=== PATIENT | male | born 1975 | race Caucasian/White ===

== ENCOUNTER 2016-02-22 08:17 | Emergency (ER) | payer OTHER ==
[2016-02-22 08:36] VITALS: BP 137/88
--- NOTE | 2016-02-22 08:48 | UC ---
Skin Complaint HPI - HPI Summary HPI Summary: Often gets small painful bumps on hips/groin folds where his underwear rubs. Has one right now that has gotten bigger and more painful, worried about it developing into an abscess. Denies drainage or fever. First noticed a few days ago. - History of Current Complaint Chief Complaint: UC Time Seen by Provider: 02/22/16 08:38 Stated Complaint: SKIN COMPLAINT Hx Obtained From: Patient Onset/Duration: Gradual Onset, Lasting Days Timing: Constant Onset Severity: Mild Current Severity: Mild Location: Discrete Character: Pain, Redness, Raised Aggravating: Touch Alleviating: Nothing Associated Signs & Symptoms: Positive: Negative - Allergy/Home Medications Allergies/Adverse Reactions: Allergies Allergy/AdvReac Type Severity Reaction Status Date / Time No Known Allergies Allergy Verified 02/22/16 08:36 Review of Systems Constitutional: Negative Skin: Other - red painful lump L hip Eyes: Negative ENT: Negative Respiratory: Negative Cardiovascular: Negative Gastrointestinal: Negative Genitourinary: Negative Motor: Negative Neurovascular: Negative Musculoskeletal: Negative Neurological: Negative Psychological: Negative All Other Systems Reviewed And Are Negative: Yes PMH/Surg Hx/FS Hx/Imm Hx Endocrine History Of: Denies: Diabetes, Thyroid Disease Cardiovascular History Of: Denies: Cardiac Disorders, Hypertension Respiratory History Of: Reports: Asthma - childhood asthma Denies: COPD GI/ History Of: Denies: Ulcer - Surgical History Surgical History: None - Family History Known Family History: Positive: Hypertension - Social History Occupation: Employed Full-time Alcohol Use: Weekly Substance Use Type: None Smoking Status (MU): Former Smoker Type: Cigarettes Household Exposure Type: Cigarettes - Immunization History Most Recent Tetanus Shot: unknown Physical Exam Triage Information Reviewed: Yes Appearance: Well-Appearing, No Pain Distress, Well-Nourished Vital Signs: Initial Vital Signs Temp 98.8 F 02/22/16 08:32 Pulse 77 02/22/16 08:32 Resp 16 02/22/16 08:32 BP 137/88 02/22/16 08:32 Pulse Ox 99 02/22/16 08:32 Vital Signs Reviewed: Yes Eye Exam: Normal Eyes: Positive: Conjunctiva Clear ENT Exam: Normal ENT: Positive: Normal ENT inspection, Hearing grossly normal, Pharynx normal, TMs normal Dental Exam: Normal Neck exam: Normal Neck: Positive: Supple, Nontender, No Lymphadenopathy Respiratory Exam: Normal Respiratory: Positive: Chest non-tender, Lungs clear, Normal breath sounds, No respiratory distress, No accessory muscle use Cardiovascular Exam: Normal Cardiovascular: Positive: RRR, No Murmur Musculoskeletal Exam: Normal Neurological Exam: Normal Psychological Exam: Normal Skin Exam: Other - folliculitis L hip, one pustule with approx 2cm erythema surrounding. Course/Dx - Diagnoses Provider Diagnoses: folliculitis Discharge - Discharge Plan Condition: Stable Disposition: HOME Prescriptions: Sulfamethox/Trimethoprim DS* [Bactrim DS 800/160 TAB*] 1 tab PO BID #10 tab Patient Education Materials: Folliculitis (ED) Referrals: Adrián Singh MD [Primary Care Provider] - Additional Instructions: Apply warm compresses frequently to the sore area. If you have marked swelling or pain, please return here.
== END 2016-02-22 08:46 | disposition home or self-care (01) ==
LOC: UCEAST 08:17
DX: L73.9 Follicular disorder, unspecified (principal)
CPT/HCPCS: 99212; G0463

== ENCOUNTER 2016-02-28 12:55 | Emergency (ER) | payer OTHER ==
[2016-02-28 13:44] VITALS: BP 141/83
--- NOTE | 2016-03-04 19:39 | UC ---
Skin Complaint HPI - HPI Summary HPI Summary: Concerned about folliculitis on right hip that is not resolved after 5 days of Bactrim - History of Current Complaint Chief Complaint: UCSkin Time Seen by Provider: 02/28/16 13:45 Stated Complaint: SKIN COMPLAINT Hx Obtained From: Patient Onset/Duration: Gradual Onset, Lasting Days Timing: Constant Onset Severity: Mild Current Severity: Mild Pain Intensity: 1 Pain Scale Used: 0-10 Numeric Location: Discrete - right hip Aggravating: Nothing Alleviating: Other - to a small extent Bactrim Associated Signs & Symptoms: Positive: Rash - Allergy/Home Medications Allergies/Adverse Reactions: Allergies Allergy/AdvReac Type Severity Reaction Status Date / Time No Known Allergies Allergy Verified 02/28/16 13:44 Review of Systems Constitutional: Negative Skin: Rash - patch of folliculitis on Right Hip Eyes: Negative ENT: Negative Respiratory: Negative Cardiovascular: Negative Gastrointestinal: Negative Genitourinary: Negative Motor: Negative Neurovascular: Negative Musculoskeletal: Negative Neurological: Negative Psychological: Negative All Other Systems Reviewed And Are Negative: Yes PMH/Surg Hx/FS Hx/Imm Hx Previously Healthy: No Endocrine History Of: Denies: Diabetes, Thyroid Disease Cardiovascular History Of: Denies: Cardiac Disorders, Hypertension Respiratory History Of: Reports: Asthma - childhood asthma Denies: COPD GI/ History Of: Denies: Ulcer - Surgical History Surgical History: None - Family History Known Family History: Positive: Hypertension - Social History Occupation: Employed Full-time Lives: With Family Alcohol Use: Weekly Substance Use Type: None Smoking Status (MU): Former Smoker Type: Cigarettes Household Exposure Type: Cigarettes - Immunization History Most Recent Tetanus Shot: unknown Physical Exam Triage Information Reviewed: Yes Appearance: Well-Appearing, No Pain Distress, Well-Nourished Vital Signs: Initial Vital Signs Temp 98.3 F 02/28/16 13:39 Pulse 84 02/28/16 13:39 Resp 12 02/28/16 13:39 BP 141/83 02/28/16 13:39 Pulse Ox 99 02/28/16 13:39 Vital Signs Reviewed: Yes Eye Exam: Normal Eyes: Positive: Conjunctiva Clear ENT Exam: Normal ENT: Positive: Normal ENT inspection, Hearing grossly normal. Negative: Nasal congestion, Nasal drainage, Trismus, Muffled/hoarse voice Neck exam: Normal Neck: Positive: Supple, Nontender Respiratory Exam: Normal Respiratory: Positive: Chest non-tender, Lungs clear, Normal breath sounds, No respiratory distress, No accessory muscle use Cardiovascular Exam: Normal Cardiovascular: Positive: RRR, No Murmur, Pulses Normal, Brisk Capillary Refill Musculoskeletal Exam: Normal Musculoskeletal: Positive: Strength Intact, ROM Intact, No Edema Neurological Exam: Normal Neurological: Positive: Alert, Muscle Tone Normal Psychological Exam: Normal Skin Exam: Other Skin: Positive: rashes - folliculitis right hip Course/Dx - Course Course Of Treatment: continue Bactrim, warm compresses and clothing that does not rub on rash, wash bid with mild soap follow with pcp prn - Differential Diagnoses - Skin Complaint Differential Diagnoses: Cellulitis, Drug Rash, MRSA, Other - Folliculitis - Diagnoses Provider Diagnoses: Folliculitis right hip Discharge - Discharge Plan Condition: Stable Disposition: HOME Prescriptions: Cephalexin CAP* [Keflex CAP*] 500 mg PO QID #28 cap Patient Education Materials: Folliculitis (ED), Heat Pack Application (ED) Referrals: Adrián Singh MD [Primary Care Provider] - If Needed
== END 2016-02-28 13:55 | disposition home or self-care (01) ==
LOC: UCEAST 12:55
DX: L73.9 Follicular disorder, unspecified (principal); Z87.891 Personal history of nicotine dependence
CPT/HCPCS: 99212; G0463

== ENCOUNTER → 2016-05-13 07:36 | Day surgery (SDC) | payer OTHER ==
[~2016-05-13 07:36] MED LIST: Buffered Lidocaine 1% SYR 3ML* 3 ML/SYR SYRINGE INTRADERM ONE; Bupivacaine 0.25% EPI 200,000* 30 ML SDV ONE; Bupivacaine 0.5% W/EPI SDV* 30 ML VIAL ONE; Dexamethasone IV* 4 MG/ML 1 ML (4 MG) ONE; EPINEPHrine AMP 1 MG/ML ONE; Ketorolac INJ* 30 MG/ML 1 ML VIAL IV PRN; Lidocaine 2% PF * 5 ML VIAL ONE; Midazolam* 1 MG/ML 2 ML VIAL (2 MG) ONE; Ondansetron INJ* 2 MG/ML VIAL IV PRN; Propofol* 10 MG/ML 20 ML BTL IV PUSH ONE; ROPIVACAINE 5 MG/ML 30 ML BTL (0.5%) ONE; Sodium Citrate/Citric Acid* 15 ML UDC ONE; Sodium Citrate/Citric Acid* 15 ML UDC PO ONE; Succinylcholine* 20 MG/ML 10 ML VIAL ONE; ceFAZolin 2 GM PREMIX (*) 2 GM/50 ML BAG IVPB ONE; fentaNYL* 50 MCG/ML 2 ML VIAL (100 MCG VIAL) IV PRN; fentaNYL* 50 MCG/ML 2 ML VIAL (100 MCG VIAL) ONE
[2016-05-13 12:05] VITALS: BP 127/86
--- NOTE | 2016-05-14 02:53 | OP ---
DATE OF OPERATION: 05/13/16 - [facility] DATE OF : 79 SURGEON: Timothy Encinas MD CLOUD CONSULTANT: SATHISH Hoover ANESTHESIOLOGIST: Matteo High DO ANESTHESIA: General anesthesia, regional anesthesia, interscalene block, local anesthesia. ANTIBIOTICS: 2 g Ancef IV. IV FLUIDS: See anesthesia note. COMPLICATIONS: None. ESTIMATED BLOOD LOSS: Minimal. SPECIMEN: None. IMPLANTS: Arthrex proximal biceps unicortical button x1. PRE-OP DIAGNOSES: 1. Left shoulder AC joint arthritis. 2. Left shoulder subacromial impingement. 3. Left shoulder superior labral tear. 4. Left shoulder spinoglenoid notch cyst. POST-OP DIAGNOSES: 1. Left shoulder AC joint arthritis. 2. Left shoulder subacromial impingement. 3. Left shoulder superior labral tear. 4. Left shoulder spinoglenoid notch cyst. OPERATIVE PROCEDURE: 1. Left shoulder arthroscopic distal clavicle resection. 2. Left shoulder arthroscopic subacromial decompression. 3. Left shoulder decompression of spinoglenoid notch cyst. 4. Left shoulder arthroscopic debridement of superior labrum. 5. Left shoulder arthroscopic release of biceps tendon. 6. Left shoulder open proximal biceps tenodesis. INDICATIONS FOR PROCEDURE: The patient is a 40-year-old man, right-hand dominant, heavy labor, who does CAPPTURE work for [employer], who presented to me in clinic with over 6 months of pain about the left shoulder, mostly superior, affecting him with activities of daily living as well as nighttime pain and any overhead type pain. I first saw the patient in the office on 12/29/15. I injected cortisone into his left AC joint. The patient had 100% relief of his pain, although that relief only lasted 2 to 3 months. I also prescribed physical therapy, which the patient did for his left shoulder and naproxen. The patient's pain returned and he was interested in surgical management having failed nonoperative treatment. An MRI demonstrated AC joint arthritis with osteophytes on the undersurface of the acromion and the distal clavicle impinging the supraspinatus. There is infraspinatus tendinosis noted. There is also a superior and posterior superior labral tear noted with a large spinoglenoid notch cyst visible. Exam demonstrated positive subacromial impingement signs, pain and weakness with supraspinatus stress testing, severe tenderness to palpation at the AC joint, with reproduction of much of the patient's pain. The patient also had tenderness with proximal biceps. Positive pain with Speeds and [place] testing. The patient opted for surgical management. We discussed what treatment of the superior and posterior superior labral tearing as well as spinoglenoid notch cyst would be. If the biceps were need to be released, the patient preferred biceps tenodesis to simple biceps tenotomy. DESCRIPTION OF PROCEDURE: Preoperative written consent. Operative extremity was marked in the preoperative holding. I reviewed benefits, risks and potential complications of the procedure. The patient was taken back to the operating room and placed supine on the operating room table. Left shoulder regional interscalene block performed. The patient was then sedated and intubated. The patient was placed in the lateral decubitus position with the left shoulder up. 12 pounds of longitudinal traction were placed. A beanbag was inflated, all bony prominences padded, axillary roll placed. The left shoulder was prepped and draped. Surgical time-out was performed. 25 cc of normal saline were injected from posterior end of the glenohumeral joint. Posterior glenohumeral joint portal was then established using standard technique. Diagnostic arthroscopy was commenced. No articular cartilage damage to the humeral head or glenoid. No rotator cuff tearing of its undersurface, any tendon. No biceps tendinosis was noted. There was noted to be some possible tear of the superior and posterior superior labrum and there was some clearly inflamed hyperemic tissue medial to the posterior superior labrum. An anterior glenohumeral joint portal was established under direct visualization. Shaver was used to lightly debride the superior and posterior superior labrum. Probe was placed under the labrum in this location. The labrum lifted off proximally 5 mm and there was not intact cartilage over the superior rim of the glenoid. Instead, there was clearly some inflamed tissue in that location. That being said, the superior and posterior superior labrum were not flapping into the joint. There was not that level of instability of the tear. Arthroscopic scissors were entered into the joint and used to cut the proximal biceps right off its origin. I next addressed the spinoglenoid notch cyst. Entering from posterior, I used a spinal needle to poke the tissue just medial to the posterior superior labrum. This resulted in some release of yellow fluid globules, likely consistent with cyst material. I also entered a switching stick deep to the posterior superior labrum underneath it, between it, in the glenoid to release some fat globules that way. I then made an accessory posterior portal and placed a trocar through it into the soft tissue just medial to the posterior superior labrum. This released some fluid and hopefully will allow the continued release of this fluid. Arthroscopic shaver was placed into the joint to remove any cyst material floating throughout the joint. Then, instruments and fluid were removed from the glenohumeral joint. Subacromial space was entered from anterior and posterior. Under direct visualization, a lateral subacromial joint portal was established. Arthroscopic shaver was entered and used to debride significant amount of bursitic tissue about the subacromial space. Then subacromial decompression was performed with proximally 6 mm of the inferior aspect of the anterior hook of the acromion removed with an arthroscopic glenn. There was spurring noted especially close to the AC joint of the acromion. I then visualized well the AC joint. There was significant amount of bursitic tissue about the joint. I removed this with an arthroscopic shaver and with a VAPR glenn. I then removed the distal 8 mm of the distal clavicle with an arthroscopic glenn. I also lightly debrided with the glenn the medial aspect of the acromial side of the joint. I visualized well all four corners of this joint and it was widely released. All instruments and fluids were removed from the subacromial space. Skin incisions were closed with figure -of-eight stitches using nylon 4-0 suture. The patient was turned into a supine position after the beanbag was deflated. The beanbag was reinflated and the patient was placed supine directly over the table, operating room. I then made a short, perhaps 3 to 4 mm, longitudinal skin incision over the anterior medial left upper arm. Spreading scissor dissection got me down to fascia. I palpated the inferior aspect of the pectoralis major tendon and followed to that to the bicipital groove. Retractors were placed. Visualized the long head of the biceps tendon. Removed that from the wound. Debrided the bicipital groove just inferior to the pec major tendon. Placed a FiberLoop 3 stitches in the biceps tendon at the appropriate level for good length-tension relationship of repair. Loaded biceps anchor. Then, I drilled the bicipital groove one cortex. Placed button, flipped it, tied a knot, then placed another stitch through the tendon. Removed excess biceps tendon and suture. Irrigation. Closure of the subcutaneous layer with buried simple stitches using Vicryl 2-0 and Vicryl 3-0 suture. Closure of the subcuticular layer with a running stitch using Monocryl 4-0 suture. Mastisol and then Steri-Strips over the open incision. Then, 4x4 and Tegaderm. The arthroscopic incisions had Xeroform followed by 4x4s, ABDs and foam tape. Sling was placed. The patient was awakened, extubated, brought to the PACU. DISPOSITION: The patient will be discharged home on Percocet, aspirin, and Keflex. The patient will follow up in 10 to 14 days. [id number]/[facility] #: [id number] MTDD
== END | disposition home or self-care (01) ==
LOC: OR 07:36
PROVIDERS: ATTEND Orthopaedic Surgery
PROC: 0PBB4ZZ Excision of Left Clavicle, Percutaneous Endoscopic Approach (ICD-10-PCS; 2016-05-13)
PROC: 0RBK4ZZ Excision of Left Shoulder Joint, Percutaneous Endoscopic Approach (ICD-10-PCS; principal; 2016-05-13 09:00)
DX: M19.012 Primary osteoarthritis, left shoulder (principal); M75.22 Bicipital tendinitis, left shoulder; M75.42 Impingement syndrome of left shoulder; S43.432S Superior glenoid labrum lesion of left shoulder, sequela; S43.432D Superior glenoid labrum lesion of left shoulder, subsequent encounter
CPT/HCPCS: 36415; 85610; 85730; A9270-GY; C1776; J0171; J0330; J0690; J1100; J2250; J2704; J2795; J3010

== ENCOUNTER 2016-07-05 08:03 | Emergency (ER) | payer OTHER ==
[2016-07-05 09:40] VITALS: BP 136/75
--- NOTE | 2016-07-05 09:58 | ED ---
Skin Complaint - HPI Summary HPI Summary: PATIENT PRESENTS TO ED WITH CC OF LEFT SIDED GROIN ABSCESS PRESENT FOR 3 DAYS. HE HAS HAD A PREVIOUS ABSCESS IN THE SAME LOCATION A FEW YEARS AGO WHICH REQUIRED I AND D, PACKING, AND RE-CHECKS. TODAY, HE NOTES TO A SMALL ABSCESS, BUT DOESN'T WANT IT TO BECOME WORSE. THE AREA IS WHERE HE PREVIOUSLY HAD SHAVED AND IS LIKELY AN INGROWN HAIR. DENIES FEVERS, CHILLS, ACHES AND SWEATS. DENIES STREAKING FROM THE AREA OR DRAINAGE. PATIENT IS OTHERWISE HEALTHY AND TAKES NO MEDICATIONS. - History of Current Complaint Chief Complaint: EDGeneral Time Seen by Provider: 07/05/16 08:45 Stated Complaint: ABSCESS ON HIP Hx Obtained From: Patient Onset/Duration: Started Days Ago Timing: Constant Onset Severity: Moderate Current Severity: Moderate Pain Intensity: 0 Pain Scale Used: 0-10 Numeric Skin Location: Leg Character: Pain, Raised Aggravating Symptom(s): Touch Alleviating Symptom(s): Nothing Associated Signs & Symptoms: Negative - Allergy/Home Medications Allergies/Adverse Reactions: Allergies Allergy/AdvReac Type Severity Reaction Status Date / Time No Known Allergies Allergy Verified 05/13/16 07:56 PMH/Surg Hx/FS Hx/Imm Hx Previously Healthy: Yes Endocrine/Hematology History: Denies: Hx Diabetes, Hx Thyroid Disease Cardiovascular History: Denies: Hx Hypertension, Hx Pacemaker/ICD Respiratory History: Reports: Hx Asthma - childhood asthma Denies: Hx Chronic Obstructive Pulmonary Disease (COPD) GI History: Denies: Hx Ulcer History: Denies: Hx Renal Disease Musculoskeletal History: Reports: Hx Arthritis - left shoulder Sensory History: Reports: Hx Contacts or Glasses - glasses Denies: Hx Hearing Aid Opthamlomology History: Reports: Hx Contacts or Glasses - glasses Psychiatric History: Denies: Hx Panic Disorder - Surgical History Hx Anesthesia Reactions: No - Immunization History Hx Pertussis Vaccination: No Immunizations Up to Date: Yes Infectious Disease History: No Infectious Disease History: Denies: Hx Hepatitis, Hx Human Immunodeficiency Virus (HIV), Traveled Outside the [place] in Last 30 Days - Family History Known Family History: Positive: Hypertension - Social History Occupation: Employed Full-time Lives: With Family Alcohol Use: Weekly Alcohol Amount: 3 beers a night Hx Substance Use: No Substance Use Type: Reports: None Smoking Status (MU): Heavy Every Day Tobacco Smoker Type: Cigarettes Amount Used/How Often: 1 ppd Review of Systems Constitutional: Negative Eyes: Negative Cardiovascular: Negative Respiratory: Negative Musculoskeletal: Negative Positive: Other - .5CM DIAMETER ABSCESS OVER LEFT GROIN Neurological: Negative Psychological: Normal All Other Systems Reviewed And Are Negative: Yes Physical Exam Triage Information Reviewed: Yes Vital Signs On Initial Exam: Initial Vitals Temp Pulse Resp BP Pulse Ox 98.8 F 84 18 141/86 100 07/05/16 08:39 07/05/16 08:39 07/05/16 08:39 07/05/16 08:39 07/05/16 08:39 Vital Signs Reviewed: Yes Appearance: Positive: Well-Appearing, Well-Nourished Skin: Positive: Warm, Skin Color Reflects Adequate Perfusion, Other - .5CM DIAMETER ABSCESS OVER LEFT GROIN WITHOUT DRAINAGE AND SURROUNDING ERYTHEMA Head/Face: Positive: Normal Head/Face Inspection Eyes: Positive: EOMI, JOURDAN, Conjunctiva Clear Neck: Positive: Supple, Nontender, No Lymphadenopathy Respiratory/Lung Sounds: Positive: Clear to Auscultation, Breath Sounds Present Cardiovascular: Positive: Normal, RRR, Pulses are Symmetrical in both Upper and Lower Extremities Musculoskeletal: Positive: Normal, Strength/ROM Intact Neurological: Positive: Normal, Sensory/Motor Intact Psychiatric: Positive: Normal AVPU Assessment: Alert Procedures - Incision and Drainage Site: LEFT GROIN Anesthesia: Lidocaine Instrument(s): Scalpel Packing: Other - NO PACKING REQUIRED Diagnostics - Vital Signs Vital Signs Temp Pulse Resp BP Pulse Ox 07/05/16 09:39 98.2 F 71 18 136/75 07/05/16 09:02 98.8 F 84 18 141/86 100 07/05/16 08:39 98.8 F 84 18 141/86 100 - Laboratory Lab Statement: Any lab studies that have been ordered have been reviewed, and results considered in the medical decision making process. Course/Dx - Course Course Of Treatment: PATIENT ARRIVES WITH .5CM DIAMETER SMALL .5CM RAISED ABSCESS WITH SURROUNDING ERYTHEMA WITH FLUCTUANCE AND SURROUNDING ERYTHEMA. PATIENT NOTES TO PREVIOUS ABSCESS IN SAME LOCATION. DENIES FEVER, CHILLS OR SWEATS. TIME OUT OBTAINED. STERILE PROCEDURE WITH PRECAUTIONS WERE TAKEN. 1% LIDOCAINE WITHOUT EPI USED FOR ANESTHETIC. BETADYNE PREP. 25 BLADE USED FOR INCISION. CULTURE OBTAINED. DRAINED MODERATE AMOUNT OF PURULENT WHITE PUS. SMALL CLOSED WOUND, NO NEED FOR PACKING MATERIAL. PATIENT TOLERATED WELL. CLEANED AND TELFA APPLIED. KEFLEX PRESCRIBED. NO TRACTS THROUGH WOUND WERE IDENTIFIED THROUGH EXPLORATION. RETURN PRECAUTIONS GIVEN. PATIENT OK WITH DISCHARGE. - Differential Diagnoses - Skin Complaint Differential Diagnoses: Abscess, Other - FOLLICULITIS, CELLULITIS - Diagnoses Provider Diagnoses: Infected epidermoid cyst Discharge - Discharge Plan Condition: Stable Disposition: HOME Prescriptions: Cephalexin CAP* [Keflex CAP*] 500 mg PO QID #28 cap MDD 4 Patient Education Materials: Abscess (ED), Warm Compress or Soak (ED) Referrals: Adrián Singh MD [Primary Care Provider] - Additional Instructions: Follow up with PCP as neede Warm compresses to the area 2-3 times per day If abscess continues to drain, keep gauze wrapped over the area until drainage subsides Antibiotics as prescribed If you develop fever, red streaking around the wound, warmth or worsening redness, these are signs of infection. You will need to return to ED for evaluation. We will call for any abx changes if they need to be made Images - Images Full Body (No Head): 1 - SMALL .5CM DIAMETER, .5CM RAISED RED ABSECESS
== END 2016-07-05 09:39 | disposition home or self-care (01) ==
LOC: ED 08:03
DX: L72.0 Epidermal cyst (principal)
CPT/HCPCS: 99282

== ENCOUNTER 2016-07-14 15:51 | Emergency (ER) | payer OTHER ==
[2016-07-14 15:55] VITALS: BP 141/90
[2016-07-14] MEDS ORDERED: diPHENhydraMINE PO* 25 MG PO ONE (17:57)
[2016-07-14] MEDS ORDERED: predniSONE TAB* 20 MG PO ONE (17:57)
--- NOTE | 2016-07-14 17:59 | ED ---
Skin Complaint - HPI Summary HPI Summary: 40M presents with diffuse rash today. He states he had a turkey wrap for lunch today when rash started. He denies any new products or soaps. He denies any chest pain, SOB, sore throat. He denies any history of allergic reaction. He has not taken anything yet. He admits that rash is itchy. The rash covers whole body except for face. - History of Current Complaint Chief Complaint: EDRashSkinAbscess Time Seen by Provider: 07/14/16 17:38 Stated Complaint: HIVES Pain Intensity: 0 - Allergy/Home Medications Allergies/Adverse Reactions: Allergies Allergy/AdvReac Type Severity Reaction Status Date / Time No Known Allergies Allergy Verified 05/13/16 07:56 PMH/Surg Hx/FS Hx/Imm Hx Endocrine/Hematology History: Denies: Hx Diabetes, Hx Thyroid Disease Cardiovascular History: Denies: Hx Hypertension, Hx Pacemaker/ICD Respiratory History: Reports: Hx Asthma - childhood asthma Denies: Hx Chronic Obstructive Pulmonary Disease (COPD) GI History: Denies: Hx Ulcer History: Denies: Hx Renal Disease Musculoskeletal History: Reports: Hx Arthritis - left shoulder Sensory History: Reports: Hx Contacts or Glasses - glasses Denies: Hx Hearing Aid Opthamlomology History: Reports: Hx Contacts or Glasses - glasses Psychiatric History: Denies: Hx Panic Disorder - Surgical History Hx Anesthesia Reactions: No Infectious Disease History: No Infectious Disease History: Denies: Hx Hepatitis, Hx Human Immunodeficiency Virus (HIV), Traveled Outside the in Last 30 Days - Family History Known Family History: Positive: Hypertension - Social History Alcohol Use: Weekly Alcohol Amount: 3 beers a night Hx Substance Use: No Substance Use Type: Reports: None Smoking Status (MU): Heavy Every Day Tobacco Smoker Type: Cigarettes Amount Used/How Often: 1 ppd Review of Systems Negative: Fever Negative: Chest Pain Negative: Shortness Of Breath Positive: Rash All Other Systems Reviewed And Are Negative: Yes Physical Exam Triage Information Reviewed: Yes Vital Signs On Initial Exam: Initial Vitals Temp Pulse Resp BP Pulse Ox 98.8 F 109 19 141/90 98 07/14/16 15:53 07/14/16 15:53 07/14/16 15:53 07/14/16 15:53 07/14/16 15:53 Vital Signs Reviewed: Yes Appearance: Positive: Well-Appearing Skin: Positive: Other - hives across entire body Head/Face: Positive: Normal Head/Face Inspection Eyes: Positive: Normal, Conjunctiva Clear ENT: Positive: Normal ENT inspection, Pharynx normal, TMs normal Respiratory/Lung Sounds: Positive: Clear to Auscultation, Breath Sounds Present Cardiovascular: Positive: Normal, RRR Diagnostics - Vital Signs Vital Signs Temp Pulse Resp BP Pulse Ox 07/14/16 15:53 98.8 F 109 19 141/90 98 - Laboratory Lab Statement: Any lab studies that have been ordered have been reviewed, and results considered in the medical decision making process. Course/Dx - Course Course Of Treatment: 40M presents with rash across entire body today s/p eatting something for lunch. never had reaction before. denies any SOB or difficulty swallowing. on exam has hives across entire body. gave dose of bendaryl and steriod. patient understands and agrees with plan - Differential Diagnoses - Skin Complaint Differential Diagnoses: Allergic Reaction, Contact Dermatitis, Local Allergic Reaction, Urticaria - Diagnoses Provider Diagnoses: Hives Discharge - Discharge Plan Condition: Good Disposition: HOME Prescriptions: Methylprednisolone [Medrol Dosepak 4 MG*] 4 mg PO .SEE STACIE INSTRUCTION #1 packet Patient Education Materials: Urticaria (ED) Referrals: Adrián Singh MD [Primary Care Provider] - Additional Instructions: Take Benadryl every 6 hours for next 24 hours Can apply cream with hydrocortisone to area for itchy Take ibuprofen every 6 hours for pain Follow directions on dose pack for prednisone starting tomorrow Return to ED if develop SOB, difficulty swallowing or any new or worsening symptoms
== END 2016-07-14 18:21 | disposition home or self-care (01) ==
LOC: ED 15:51
DX: L50.9 Urticaria, unspecified (principal); F17.210 Nicotine dependence, cigarettes, uncomplicated
CPT/HCPCS: 99282; A9270-GY; J7512